=== PATIENT | male | born 1945 | race American Indian/Alaskan Native ===

== ENCOUNTER 2016-11-22 17:30 | Inpatient (IN) | payer MEDICARE, OTHER ==
[~2016-11-22] VITALS: Ht 188 cm; Wt 120.9 kg
[~2016-11-22 17:30] MED LIST: ACID1TAB3 PO; ATEN50TA41 PO; CETI10TA32 PO; CLIN300C93 PO; LOSA100T6 PO; OXYC1TAB7 PO; OXYC5TAB3 PO; Oxycodone Hcl PO; PANT40TA5 PO; WARF5TAB PO; WARF7.5T PO
[2016-11-22] MEDS ORDERED: PANTOPRAZOLE 80 MG in SODIUM CHLORIDE 0.9% 50 ML IVPB ONE ×2 (17:49→18:02)
[2016-11-22] MEDS ORDERED: PANTOPRAZOLE 80 MG in SODIUM CHLORIDE 0.9% 100 ML IV SCH (17:49)
[2016-11-22] MEDS ORDERED: SODIUM CHLORIDE 0.9% 1,000ML IVBOLUS ONE (18:00)
[2016-11-22] MEDS ORDERED: ONDANSETRON 2MG/ML, 2ML IVPush ONE (18:00)
[2016-11-22 18:26] LABS: BLOOD UREA NITROGEN 27 mg/dL (7-18)
[2016-11-22 18:29] LABS: ASPARTATE AMINO TRANSFERASE 91 U/L (15-37)
[2016-11-22] MEDS ORDERED: OCTREOTIDE 500 MCG in SODIUM CHLORIDE 0.9% 249 ML IV PRN (18:37)
[2016-11-22] MEDS: PANTOPRAZOLE 80 MG in SODIUM CHLORIDE 0.9% 100 ML IV SCH (18:39)
[2016-11-22] MEDS ORDERED: OCTREOTIDE 100MCG/ML, 1ML (0.1MG/ML) IV ONE (19:00)
[2016-11-22] MEDS ORDERED: ATEN100T PO (19:07)
[2016-11-22] MEDS ORDERED: LOSA1TAB18 PO (19:07)
[2016-11-22] MEDS ORDERED: PANT20TA3 PO (19:07)
[2016-11-22] MEDS ORDERED: ONDANSETRON 2MG/ML, 2ML ONE (19:30)
[2016-11-22] MEDS ORDERED: OCTREOTIDE 100MCG/ML, 1ML (0.1MG/ML) ONE (19:30)
[2016-11-22] MEDS ORDERED: MVI ADULT 10 ML, FOLIC ACID 1 MG, THIAMINE 100 MG, MAG SULFATE 4 MEQ, POTASSIUM CHLORID... IV ONE (20:30)
[2016-11-22 22:26] VITALS: BP 112/71
[2016-11-22 23:51] VITALS: BP 112/71
[2016-11-23 02:15] VITALS: BP 105/68
[2016-11-23] MEDS: PANTOPRAZOLE 80 MG in SODIUM CHLORIDE 0.9% 100 ML IV SCH ×3 (04:02→17:29)
[2016-11-23] MEDS ORDERED: MAGNESIUM SULFATE PMX 4GM/100M 100 ML IV ONE (06:30)
[2016-11-23] MEDS ORDERED: PHYTONADIONE 10 MG/ML, 1ML SQ ONE (06:30)
[2016-11-23 08:00] VITALS: BP 109/68
[2016-11-23] MEDS: ATENOLOL 100 MG TABLET PO SCH (09:00)
[2016-11-23 13:40] VITALS: BP 115/69
[2016-11-23] MEDS ORDERED: PROPOFOL 10 MG/ML, 20ML ONE (14:48)
[2016-11-23] MEDS ORDERED: MEPERIDINE/PF 25MG/0.5ML IVPush PRN (15:30)
[2016-11-23] MEDS ORDERED: ALBUTEROL/IPRATROPIUM 2.5MG/0.5MG, 3 ML NPPB PRN (15:30)
[2016-11-23] MEDS ORDERED: FENTANYL PF 100 MCG/2ML IV PRN (15:30)
[2016-11-23] MEDS ORDERED: MIDAZOLAM 1 MG/ML, 2ML IV PRN (15:30)
[2016-11-23] MEDS ORDERED: OXYcodone 5 MG/5 ML ORAL.SOL UDC PO PRN (15:30)
[2016-11-23] MEDS ORDERED: LABETALOL 5MG/ML, 20ML IV PRN (15:30)
[2016-11-23] MEDS ORDERED: ACETAMINOPHEN 325 MG TABLET PO PRN (15:30)
[2016-11-23] MEDS ORDERED: PROMETHAZINE 25 MG/ML, 1ML IV PRN (15:30)
[2016-11-23] MEDS ORDERED: HYDROmorphone 1 MG/ML, 1ML IV PRN (15:30)
[2016-11-23] MEDS ORDERED: ONDANSETRON 2MG/ML, 2ML IVPush PRN (15:30)
[2016-11-23] MEDS ORDERED: EPINEPHRINE SYRINGE 0.1 MG/ML, 10ML ONE (15:32)
[2016-11-23 19:12] VITALS: BP 127/75
[2016-11-24 02:25] VITALS: BP 114/72
[2016-11-24] MEDS: PANTOPRAZOLE 80 MG in SODIUM CHLORIDE 0.9% 100 ML IV SCH ×2 (03:13→13:19)
[2016-11-24 07:55] VITALS: BP 112/74
[2016-11-24] MEDS: ATENOLOL 100 MG TABLET PO SCH (10:30)
[2016-11-24 12:34] VITALS: BP 115/69
[2016-11-24 12:46] LABS: BLOOD UREA NITROGEN 19 mg/dL (7-18)
[2016-11-24] MEDS ORDERED: MAGNESIUM SULFATE PMX 4GM/100M 100 ML IV ONE (14:00)
[2016-11-24] MEDS ORDERED: PANTOPROZOLE 40MG TABLET PO SCH (14:00)
[2016-11-24] MEDS: OMEPRAZOLE 20 MG CAPSULE.DR PO SCH ×2 (15:00→17:00)
[2016-11-24] MEDS: NEUTRA PHOS K 250 MG TABLET PO SCH ×2 (17:00→20:43)
[2016-11-24 18:56] VITALS: BP 118/73
[2016-11-25 00:57] VITALS: BP 141/90
[2016-11-25 05:41] LABS: BLOOD UREA NITROGEN 13 mg/dL (7-18)
[2016-11-25 06:36] VITALS: BP 113/66
[2016-11-25] MEDS: NEUTRA PHOS K 250 MG TABLET PO SCH (08:35)
[2016-11-25] MEDS: ATENOLOL 100 MG TABLET PO SCH (08:35)
[2016-11-25] MEDS: OMEPRAZOLE 20 MG CAPSULE.DR PO SCH ×2 (08:35→17:51)
[2016-11-25] MEDS: FERROUS SULFATE 325 MG TABLET PO SCH ×2 (11:58→17:51)
[2016-11-25 13:10] VITALS: BP 115/73
[2016-11-25 19:49] VITALS: BP 116/68
[2016-11-26 04:25] VITALS: BP 107/67
[2016-11-26 06:05] LABS: BLOOD UREA NITROGEN 8 mg/dL (7-18)
[2016-11-26 07:26] VITALS: BP 120/74
[2016-11-26] MEDS ORDERED: FERR325T20 PO (11:26)
[2016-11-26] MEDS ORDERED: OMEP-110 PO (11:26)
[2016-11-26] MEDS: FERROUS SULFATE 325 MG TABLET PO SCH (11:35)
[2016-11-26] MEDS: ATENOLOL 100 MG TABLET PO SCH (11:35)
[2016-11-26] MEDS: OMEPRAZOLE 20 MG CAPSULE.DR PO SCH (11:35)
== END 2016-11-26 14:24 | disposition home or self-care (01) | DRG 377 ==
LOC: ED 18:21 → EDIP 19:43 → 3NE 22:24
PROVIDERS: ADMIT Hospitalist; ATTEND Internal Medicine
PROC: 0DB58ZZ Excision of Esophagus, Via Natural or Artificial Opening Endoscopic (ICD-10-PCS; 2016-11-23)
PROC: 0DB78ZZ Excision of Stomach, Pylorus, Via Natural or Artificial Opening Endoscopic (ICD-10-PCS; 2016-11-23)
PROC: 3E0G8GC Introduction of Other Therapeutic Substance into Upper GI, Via Natural or Artificial Opening Endoscopic (ICD-10-PCS; 2016-11-23)
PROC: 0W3P8ZZ Control Bleeding in Gastrointestinal Tract, Via Natural or Artificial Opening Endoscopic (ICD-10-PCS; principal; 2016-11-23 15:00)
DX: K25.4 Chronic or unspecified gastric ulcer with hemorrhage (principal); E43 Unspecified severe protein-calorie malnutrition; D68.9 Coagulation defect, unspecified; D62 Acute posthemorrhagic anemia; N17.9 Acute kidney failure, unspecified; E83.39 Other disorders of phosphorus metabolism; E83.42 Hypomagnesemia; F10.20 Alcohol dependence, uncomplicated; K22.70 Barrett's esophagus without dysplasia; I10 Essential (primary) hypertension; K21.9 Gastro-esophageal reflux disease without esophagitis; K29.50 Unspecified chronic gastritis without bleeding; K76.9 Liver disease, unspecified; Z86.718 Personal history of other venous thrombosis and embolism; Z87.11 Personal history of peptic ulcer disease; Z68.34 Body mass index [BMI] 34.0-34.9, adult
CPT/HCPCS: 36415; 80048; 80053; 82040; 83690; 83735; 84100; 85025; 85610; 86850; 86870; 86900; 86902; 86922; 86923; 88305; 88342; 93005; 96361; 96365; 96366; 96367; 96375; J2354; J2405; J2704; J3411; J3430; J3475; J3480; C9113; G0461; J7030; J7050

== ENCOUNTER 2018-04-10 11:01 | Inpatient (IN) | payer MEDICARE, OTHER ==
[~2018-04-10] VITALS: Ht 188 cm; Wt 126.2 kg
[~2018-04-10 11:01] MED LIST changes: +ASPI-496 PO; +ATEN100T PO; +CLIN300C8 PO; -CLIN300C93 PO; +FERR325T18 PO; +HYDROCHLOROTH12.5 MG PO; -LOSA100T6 PO; +LOSA100T7 PO; +LOSA1TAB25 PO; +OMEP-110 PO; +OXYB5TAB7 PO; +OXYC10TA6 PO; +PANT20TA3 PO
[2018-04-10 12:39] LABS: BASOPHILS # (AUTO) 0.02 x10^3/uL (0-0.1); BASOPHILS % (AUTO) 0 % (0-1); EOSINOPHILS # (AUTO) 0.02 x10^3/uL (0-0.4); EOSINOPHILS % (AUTO) 0 % (1-7); LYMPHOCYTES # (AUTO) 0.61 x10^3/uL (1-3.4); LYMPHOCYTES % (AUTO) 8 % (22-44); MD NO; MEAN CORPUSCULAR HEMOGLOBIN 32.5 pg (27.5-34.5); MEAN CORPUSCULAR VOLUME 95.4 fL (81-97); MONOCYTES # (AUTO) 0.44 x10^3/uL (0.2-0.8); MONOCYTES % (AUTO) 6 % (2-9); NEUTROPHILS # (AUTO) 6.15 x10^3/uL (1.8-6.8); NEUTROPHILS % (AUTO) 85 % (42-75); PLATELET COUNT 160 x10^3/uL (130-400); RED BLOOD COUNT 2.81 x10^6/uL (4.38-5.82); RED CELL DISTRIBUTION WIDTH 18.7 % (9.4-14.8)
[2018-04-10 12:44] LABS: INTERNATIONAL NORMALIZED RATIO 1.09 (0.93-1.1); PROTHROMBIN TIME 11.5 Seconds (9.6-11.5)
[2018-04-10 12:46] LABS: ALBUMIN 3.1 g/dL (3.4-5.0); ANION GAP 13 mmol/L (5-15); CALCIUM 9.2 mg/dL (8.5-10.1); CHLORIDE 104 mmol/L (98-107); CREATININE 1.94 mg/dL (0.7-1.3)
[2018-04-10] MEDS ORDERED: SPIR25TA5 PO (13:40)
[2018-04-10] MEDS ORDERED: CHOL200074 PO (13:40)
[2018-04-10] MEDS ORDERED: LOSA100T7 PO (13:40)
[2018-04-10] MEDS ORDERED: OMNIPAQUE 350 MG/ML, 100ML BOTTLE ONE (15:08)
[2018-04-10] MEDS ORDERED: HEPARIN 25,000 UNITS/500ML PMX 500 ML IV PRN (15:30)
[2018-04-10] MEDS ORDERED: HEPARIN 5,000 UNITS/ML, 1ML IV ONE (15:30)
[2018-04-10] MEDS ORDERED: HEPARIN 5,000 UNITS/ML, 1ML IV PRN (15:30)
[2018-04-10] MEDS ORDERED: HEPARIN 25,000 UNITS/500ML PMX 500 ML ONE (15:50)
[2018-04-10] MEDS ORDERED: HEPARIN 5,000 UNITS/ML, 1ML ONE (15:50)
[2018-04-10] MEDS ORDERED: FLUCONAZOLE TD (16:10)
[2018-04-10] MEDS ORDERED: OXYC10TA6 PO (16:10)
[2018-04-10] MEDS ORDERED: SODIUM CHLORIDE 0.9% 1,000 ML IV SCH (16:27)
[2018-04-10] MEDS ORDERED: ACETAMINOPHEN 325 MG TABLET PO PRN (16:30)
[2018-04-10] MEDS ORDERED: ONDANSETRON 2MG/ML, 2ML IVPush PRN (16:30)
[2018-04-10] MEDS ORDERED: DOCUSATE 100 MG CAPSULE PO PRN (16:30)
[2018-04-10] MEDS ORDERED: POLYETHYLENE GLYCOL 17 GM PACKET PO PRN (16:30)
[2018-04-10] MEDS ORDERED: OXYcodone IR 5MG TABLET ONE (16:37)
[2018-04-10] MEDS: OXYcodone IR 5MG TABLET PO PRN ×2 (16:41→21:51)
[2018-04-10 17:30] VITALS: BP 124/70
[2018-04-10] MEDS ORDERED: WARFARIN 5 MG TABLET PO-COUM ONE (18:00)
[2018-04-10 18:57] VITALS: BP 114/69
[2018-04-10] MEDS: HEPARIN 5,000 UNITS/ML, 1ML IV PRN (23:58)
[2018-04-11 01:22] VITALS: BP 107/68
[2018-04-11] MEDS: OXYcodone IR 5MG TABLET PO PRN ×2 (05:53→11:52)
[2018-04-11] MEDS: OMEPRAZOLE 20 MG CAPSULE.DR PO SCH (05:53)
[2018-04-11 06:14] LABS: BASOPHILS # (AUTO) 0.02 x10^3/uL (0-0.1); BASOPHILS % (AUTO) 0 % (0-1); EOSINOPHILS # (AUTO) 0.08 x10^3/uL (0-0.4); EOSINOPHILS % (AUTO) 1 % (1-7); LYMPHOCYTES # (AUTO) 1.45 x10^3/uL (1-3.4); LYMPHOCYTES % (AUTO) 20 % (22-44); MD NO; MEAN CORPUSCULAR HGB CONC 33.7 g/dL (33.2-36.2); MEAN CORPUSCULAR VOLUME 94.7 fL (81-97); MEAN PLATELET VOLUME 8.8 fL (7.4-10.4); MONOCYTES # (AUTO) 0.46 x10^3/uL (0.2-0.8); MONOCYTES % (AUTO) 6 % (2-9); NEUTROPHILS # (AUTO) 5.43 x10^3/uL (1.8-6.8); NEUTROPHILS % (AUTO) 73 % (42-75); PLATELET COUNT 138 x10^3/uL (130-400); RED BLOOD COUNT 2.67 x10^6/uL (4.38-5.82); RED CELL DISTRIBUTION WIDTH 18.3 % (9.4-14.8)
[2018-04-11 06:23] LABS: INTERNATIONAL NORMALIZED RATIO 1.13 (0.93-1.1); PROTHROMBIN TIME 11.9 Seconds (9.6-11.5)
[2018-04-11 06:24] LABS: ANION GAP 10 mmol/L (5-15); CALCIUM 8.6 mg/dL (8.5-10.1); CHLORIDE 104 mmol/L (98-107); CREATININE 1.59 mg/dL (0.7-1.3)
[2018-04-11 06:35] VITALS: BP 104/65
[2018-04-11] MEDS: SPIRONOLACTONE 25 MG TABLET PO SCH (08:39)
[2018-04-11] MEDS: LOSARTAN 50MG TABLET PO SCH (08:39)
[2018-04-11] MEDS: CETIRIZINE 10 MG TABLET PO SCH (08:39)
[2018-04-11] MEDS: SENNA/DOCUSATE TABLET PO SCH (08:39)
[2018-04-11 12:23] VITALS: BP 96/61
[2018-04-11] MEDS: HEPARIN 25,000 UNITS/500ML PMX 500 ML IV PRN (12:43)
[2018-04-11] MEDS ORDERED: MAGNESIUM SULFATE PMX 2GM/50ML 50 ML IV ONE (15:00)
[2018-04-11] MEDS: FUROSEMIDE 20 MG/2 ML IV SCH (17:06)
[2018-04-11] MEDS ORDERED: WARFARIN 5 MG TABLET PO-COUM ONE (18:00)
[2018-04-11 19:18] VITALS: BP 110/68
[2018-04-12 02:54] VITALS: BP 97/60
[2018-04-12 05:35] LABS: BASOPHILS # (AUTO) 0.02 x10^3/uL (0-0.1); BASOPHILS % (AUTO) 0 % (0-1); EOSINOPHILS # (AUTO) 0.09 x10^3/uL (0-0.4); EOSINOPHILS % (AUTO) 1 % (1-7); LYMPHOCYTES % (AUTO) 18 % (22-44); MD NO; MEAN CORPUSCULAR HEMOGLOBIN 32.3 pg (27.5-34.5); MEAN CORPUSCULAR HGB CONC 33.8 g/dL (33.2-36.2); MEAN CORPUSCULAR VOLUME 95.6 fL (81-97); MEAN PLATELET VOLUME 8.9 fL (7.4-10.4); MONOCYTES # (AUTO) 0.45 x10^3/uL (0.2-0.8); MONOCYTES % (AUTO) 6 % (2-9); NEUTROPHILS % (AUTO) 74 % (42-75); PLATELET COUNT 144 x10^3/uL (130-400); RED BLOOD COUNT 2.61 x10^6/uL (4.38-5.82); RED CELL DISTRIBUTION WIDTH 18.4 % (9.4-14.8)
[2018-04-12 05:37] LABS: INTERNATIONAL NORMALIZED RATIO 1.07 (0.93-1.1); PROTHROMBIN TIME 11.3 Seconds (9.6-11.5)
[2018-04-12 05:45] LABS: CHLORIDE 103 mmol/L (98-107)
[2018-04-12 05:50] LABS: ANION GAP 13 mmol/L (5-15); CALCIUM 8.9 mg/dL (8.5-10.1); CREATININE 1.52 mg/dL (0.7-1.3)
[2018-04-12] MEDS: HEPARIN 5,000 UNITS/ML, 1ML IV PRN (05:53)
[2018-04-12] MEDS: HEPARIN 25,000 UNITS/500ML PMX 500 ML IV PRN ×2 (05:55→21:43)
[2018-04-12] MEDS: OMEPRAZOLE 20 MG CAPSULE.DR PO SCH (05:56)
[2018-04-12 06:49] VITALS: BP 104/64
[2018-04-12] MEDS: SENNA/DOCUSATE TABLET PO SCH (08:01)
[2018-04-12] MEDS: LOSARTAN 50MG TABLET PO SCH (08:02)
[2018-04-12] MEDS: FUROSEMIDE 20 MG/2 ML IV SCH ×2 (08:02→17:19)
[2018-04-12] MEDS: SPIRONOLACTONE 25 MG TABLET PO SCH (08:02)
[2018-04-12] MEDS: CETIRIZINE 10 MG TABLET PO SCH (08:02)
[2018-04-12] MEDS: OXYcodone IR 5MG TABLET PO PRN ×2 (08:05→23:15)
[2018-04-12 13:54] VITALS: BP 95/60
[2018-04-12] MEDS ORDERED: WARFARIN 5 MG TABLET PO-COUM ONE (18:00)
[2018-04-12 19:17] VITALS: BP 93/55
[2018-04-13 01:05] VITALS: BP 96/60
[2018-04-13 05:10] LABS: BASOPHILS # (AUTO) 0.03 x10^3/uL (0-0.1); BASOPHILS % (AUTO) 0 % (0-1); EOSINOPHILS # (AUTO) 0.11 x10^3/uL (0-0.4); EOSINOPHILS % (AUTO) 2 % (1-7); LYMPHOCYTES # (AUTO) 1.75 x10^3/uL (1-3.4); LYMPHOCYTES % (AUTO) 24 % (22-44); MD NO; MEAN CORPUSCULAR HEMOGLOBIN 32.4 pg (27.5-34.5); MEAN CORPUSCULAR VOLUME 95.3 fL (81-97); MEAN PLATELET VOLUME 8.4 fL (7.4-10.4); MONOCYTES # (AUTO) 0.59 x10^3/uL (0.2-0.8); MONOCYTES % (AUTO) 8 % (2-9); NEUTROPHILS # (AUTO) 4.73 x10^3/uL (1.8-6.8); NEUTROPHILS % (AUTO) 66 % (42-75); PLATELET COUNT 158 x10^3/uL (130-400); RED BLOOD COUNT 2.52 x10^6/uL (4.38-5.82); RED CELL DISTRIBUTION WIDTH 19.4 % (9.4-14.8)
[2018-04-13 05:20] LABS: INTERNATIONAL NORMALIZED RATIO 1.1 (0.93-1.1); PROTHROMBIN TIME 11.6 Seconds (9.6-11.5)
[2018-04-13 05:22] LABS: CHLORIDE 102 mmol/L (98-107)
[2018-04-13 05:31] LABS: ANION GAP 9 mmol/L (5-15); CALCIUM 8.4 mg/dL (8.5-10.1); CREATININE 1.67 mg/dL (0.7-1.3)
[2018-04-13 07:19] VITALS: BP 95/58
[2018-04-13] MEDS: OMEPRAZOLE 20 MG CAPSULE.DR PO SCH (07:31)
[2018-04-13] MEDS: FUROSEMIDE 20 MG/2 ML IV SCH (07:31)
[2018-04-13 08:25] VITALS: BP 122/71
[2018-04-13] MEDS: CETIRIZINE 10 MG TABLET PO SCH (08:25)
[2018-04-13] MEDS: SPIRONOLACTONE 25 MG TABLET PO SCH (08:25)
[2018-04-13] MEDS: SENNA/DOCUSATE TABLET PO SCH (08:25)
[2018-04-13] MEDS: LOSARTAN 50MG TABLET PO SCH (08:25)
[2018-04-13 14:11] VITALS: BP 93/57
[2018-04-13] MEDS: HEPARIN 25,000 UNITS/500ML PMX 500 ML IV PRN (14:38)
[2018-04-13] MEDS: OXYcodone IR 5MG TABLET PO PRN (17:19)
[2018-04-13] MEDS ORDERED: WARFARIN 10 MG TABLET PO-COUM ONE (18:00)
[2018-04-13 19:40] VITALS: BP 92/48
[2018-04-14 01:15] VITALS: BP 91/57
[2018-04-14 01:53] VITALS: BP 96/58
[2018-04-14 05:40] LABS: BASOPHILS # (AUTO) 0.02 x10^3/uL (0-0.1); BASOPHILS % (AUTO) 0 % (0-1); EOSINOPHILS # (AUTO) 0.09 x10^3/uL (0-0.4); EOSINOPHILS % (AUTO) 1 % (1-7); LYMPHOCYTES # (AUTO) 1.47 x10^3/uL (1-3.4); LYMPHOCYTES % (AUTO) 21 % (22-44); MD NO; MEAN CORPUSCULAR HEMOGLOBIN 32.5 pg (27.5-34.5); MEAN CORPUSCULAR HGB CONC 33.9 g/dL (33.2-36.2); MEAN CORPUSCULAR VOLUME 95.9 fL (81-97); MEAN PLATELET VOLUME 8.7 fL (7.4-10.4); MONOCYTES # (AUTO) 0.62 x10^3/uL (0.2-0.8); MONOCYTES % (AUTO) 9 % (2-9); NEUTROPHILS # (AUTO) 4.71 x10^3/uL (1.8-6.8); NEUTROPHILS % (AUTO) 68 % (42-75); PLATELET COUNT 182 x10^3/uL (130-400); RED BLOOD COUNT 2.55 x10^6/uL (4.38-5.82); RED CELL DISTRIBUTION WIDTH 19.1 % (9.4-14.8)
[2018-04-14 05:50] LABS: ALBUMIN 2.4 g/dL (3.4-5.0); ANION GAP 13 mmol/L (5-15); CALCIUM 8.4 mg/dL (8.5-10.1); CHLORIDE 101 mmol/L (98-107); CREATININE 1.88 mg/dL (0.7-1.3); INTERNATIONAL NORMALIZED RATIO 1.2 (0.93-1.1); PROTHROMBIN TIME 12.6 Seconds (9.6-11.5)
[2018-04-14] MEDS: OMEPRAZOLE 20 MG CAPSULE.DR PO SCH (06:37)
[2018-04-14] MEDS: HEPARIN 25,000 UNITS/500ML PMX 500 ML IV PRN ×2 (06:39→23:26)
[2018-04-14 06:46] VITALS: BP 94/57
[2018-04-14] MEDS: CETIRIZINE 10 MG TABLET PO SCH (07:58)
[2018-04-14] MEDS: SENNA/DOCUSATE TABLET PO SCH ×2 (07:59→08:12)
[2018-04-14] MEDS ORDERED: SPIRONOLACTONE 25 MG TABLET PO SCH (09:00)
[2018-04-14] MEDS: OXYcodone IR 5MG TABLET PO PRN ×2 (10:18→15:33)
[2018-04-14 12:18] VITALS: BP 91/59
[2018-04-14] MEDS ORDERED: WARFARIN 10 MG TABLET PO-COUM SCH (18:00)
[2018-04-14 19:05] VITALS: BP 90/48
[2018-04-15 01:07] VITALS: BP 90/56
[2018-04-15] MEDS: OMEPRAZOLE 20 MG CAPSULE.DR PO SCH (05:54)
[2018-04-15 06:00] LABS: INTERNATIONAL NORMALIZED RATIO 1.47 (0.93-1.1); PROTHROMBIN TIME 15.4 Seconds (9.6-11.5)
[2018-04-15 06:56] VITALS: BP 95/60
[2018-04-15] MEDS ORDERED: ENOXAPARIN 120MG/0.8ML SQ SCH (08:30)
[2018-04-15] MEDS: CETIRIZINE 10 MG TABLET PO SCH (09:15)
[2018-04-15] MEDS: SENNA/DOCUSATE TABLET PO SCH (09:15)
[2018-04-15 12:49] VITALS: BP 100/63
[2018-04-15] MEDS ORDERED: POLY17PO5 PO (14:05)
[2018-04-15] MEDS ORDERED: ENOX120S4 SQ (14:05)
[2018-04-15] MEDS ORDERED: WARF10TA PO-COUM (14:05)
[2018-04-15] MEDS ORDERED: WARFARIN 10 MG TABLET PO-COUM SCH ×2 (18:00)
== END 2018-04-15 17:21 | DRG 175 ==
LOC: ED 12:19 → EDIP 15:31 → SUATTDRO 15:44 → 3NE 16:45
PROVIDERS: ADMIT Family Medicine; ATTEND Internal Medicine
DX: I26.99 Other pulmonary embolism without acute cor pulmonale (principal); E43 Unspecified severe protein-calorie malnutrition; D68.69 Other thrombophilia; K92.2 Gastrointestinal hemorrhage, unspecified; D62 Acute posthemorrhagic anemia; N17.9 Acute kidney failure, unspecified; I82.412 Acute embolism and thrombosis of left femoral vein; I82.4Z2 Acute embolism and thrombosis of unspecified deep veins of left distal lower extremity; I87.002 Postthrombotic syndrome without complications of left lower extremity; E66.01 Morbid (severe) obesity due to excess calories; G89.29 Other chronic pain; I10 Essential (primary) hypertension; K21.9 Gastro-esophageal reflux disease without esophagitis; Z66 Do not resuscitate; M54.9 Dorsalgia, unspecified; Z79.01 Long term (current) use of anticoagulants; Z86.718 Personal history of other venous thrombosis and embolism; Z82.49 Family history of ischemic heart disease and other diseases of the circulatory system; Z79.899 Other long term (current) drug therapy; Z68.35 Body mass index [BMI] 35.0-35.9, adult
CPT/HCPCS: 36415; 71275; 80048; 82040; 83735; 85025; 85520; 85610; 93306; 93922; 96374; 96375; G0378; J1644; J1650; J2405; Q9967; J1940; J3475; J7030

== ENCOUNTER 2018-05-16 15:06 | Emergency (ER) | payer MEDICARE ==
[~2018-05-16] VITALS: Ht 188 cm; Wt 113.6 kg
[~2018-05-16 15:06] MED LIST changes: +CHOL200074 PO; +ENOX120S4 SQ; +FLUCONAZOLE TD; +POLY17PO5 PO; +SPIR25TA5 PO; +WARF10TA PO-COUM
--- NOTE | 2018-05-16 15:15 | NUR ---
PT BROUGHT IN BY EMS WITH C/O LEFT KNEE PAIN. PT HAS HISTORY OF BLOOD CLOTS AND STATES, "AROUND [place] AFTER I WAS DISCHARGED FROM [place] AFTER BEING HOSPITALIZED HERE FOR A BLOOD CLOT, MY LEFT LEG STARTED SWELLING AND GETTING WORSE." NADN. PT CONNECTED TO ALL MONITORS. PT IS TACHYCARDIC BETWEEN 110-120'S. PT HAS UNLABORED RESPIRATIONS EQUAL BILATERALLY AND IS AFEBRILE. PT HAS SWELLING AND REDNESS OF LOWER EXTREMITIES. ED PA AT BEDSIDE.
[2018-05-16] MEDS ORDERED: OXYcodone/APAP 5/325MG TABLET ONE (15:27)
[2018-05-16] MEDS ORDERED: OXYcodone/APAP 5/325MG TABLET PO ONE (15:30)
--- NOTE | 2018-05-16 15:36 | NUR ---
PT MEDICATED PER EMAR.
[2018-05-16 15:43] LABS: BASOPHILS # (AUTO) 0.03 x10^3/uL (0-0.1); BASOPHILS % (AUTO) 1 % (0-1); EOSINOPHILS # (AUTO) 0.02 x10^3/uL (0-0.4); EOSINOPHILS % (AUTO) 1 % (1-7); LYMPHOCYTES # (AUTO) 0.97 x10^3/uL (1-3.4); LYMPHOCYTES % (AUTO) 22 % (22-44); MD NO; MEAN CORPUSCULAR HEMOGLOBIN 29.5 pg (27.5-34.5); MEAN CORPUSCULAR HGB CONC 33.4 g/dL (33.2-36.2); MEAN CORPUSCULAR VOLUME 88.1 fL (81-97); MEAN PLATELET VOLUME 8.2 fL (7.4-10.4); MONOCYTES # (AUTO) 0.49 x10^3/uL (0.2-0.8); MONOCYTES % (AUTO) 11 % (2-9); NEUTROPHILS # (AUTO) 2.82 x10^3/uL (1.8-6.8); NEUTROPHILS % (AUTO) 65 % (42-75); PLATELET COUNT 230 x10^3/uL (130-400); RED BLOOD COUNT 3.45 x10^6/uL (4.38-5.82); RED CELL DISTRIBUTION WIDTH 19.2 % (9.4-14.8)
[2018-05-16 15:54] LABS: ALBUMIN 3.2 g/dL (3.4-5.0); ANION GAP 12 mmol/L (5-15); CALCIUM 9.1 mg/dL (8.5-10.1); CHLORIDE 101 mmol/L (98-107); CREATININE 1.46 mg/dL (0.7-1.3)
[2018-05-16 15:57] VITALS: BP 145/87
--- NOTE | 2018-05-16 15:57 | NUR ---
PT RESTING IN BED NADN. US BEING COMPLETED.
[2018-05-16 16:24] LABS: INTERNATIONAL NORMALIZED RATIO 13.53 (0.93-1.1); PROTHROMBIN TIME 129.7 Seconds (9.6-11.5)
[2018-05-16] MEDS ORDERED: PHYTONADIONE 10 MG/ML, 1ML SQ ONE (16:30)
[2018-05-16] MEDS ORDERED: PHYTONADIONE 10 MG/ML, 1ML ONE (16:44)
--- NOTE | 2018-05-16 17:05 | NUR ---
VITAMIN K SHOT GIVEN TO PT IN LOWER RIGHT QUADRANT.
--- NOTE | 2018-05-16 17:20 | NUR ---
Patient/Caregiver given discharge instructions and they have confirmed that they understand the instructions. Patient ambulatory with steady gait.
== END 2018-05-16 17:22 | disposition home or self-care (01) ==
LOC: ED 17:00
DX: I82.512 Chronic embolism and thrombosis of left femoral vein (principal); G89.29 Other chronic pain; I10 Essential (primary) hypertension
CPT/HCPCS: 36415; 80048; 82040; 85025; 85610; 93971; 96372; 99284; J3430

== ENCOUNTER 2020-03-02 16:38 | Inpatient (IN) | payer MEDICARE ==
[~2020-03-02] VITALS: Ht 188 cm; Wt 103.9 kg
[~2020-03-02 16:38] MED LIST changes: +LOSA100T14 PO; -LOSA100T7 PO; +OXYB5TAB10 PO; -OXYB5TAB7 PO; -PANT20TA3 PO; +PANT20TA4 PO; -PANT40TA5 PO; +PANT40TA6 PO; -WARF5TAB PO; +WARF5TAB2 PO
--- NOTE | 2020-03-02 17:32 | NUR ---
PT ARRIVES SOAKED IN URINE, PT WEAK UNABLE TO HELP THIS RN TO CLEAN UP PT AND GET IN GOWN, TECH IN TO ASSIST TO CLEAN PT .
--- NOTE | 2020-03-02 17:59 | NUR ---
BIB [facility], PER SHIRA REPORT PT WITH WITH DECREASED MENTATION OVER THE PAST WEEK. PER REPORT PT HAD A FALL, UNKNOWN [place]ATH[place]. UNKNOWN LOC 1 WEEK AGO. PT WITH HX ETOH ABUSE, PER SHIRA PT SITS IN CHAIR AT HOME AND DRINKS ALL DAY LONG. PT ORIENTED X3 ON ARRIVAL. ERMD IN TO EVAL PT, AWAITING ORDERS
[2020-03-02] MEDS ORDERED: CEFTRIAXONE 1,000 MG in SODIUM CHLORIDE 0.9% 50 ML IVPB ONE (18:00)
--- NOTE | 2020-03-02 18:09 | NUR ---
PT TO US
[2020-03-02 18:56] LABS: BASOPHILS % (AUTO) 0 % (0-1); EOSINOPHILS % (AUTO) 0 % (1-7); LYMPHOCYTES % (AUTO) 9 % (22-44); MEAN CORPUSCULAR HEMOGLOBIN 35.2 pg (27.5-34.5); MEAN CORPUSCULAR HGB CONC 34.7 g/dL (33.2-36.2); MEAN PLATELET VOLUME 9.8 fL (7.4-10.4); MONOCYTES % (AUTO) 12 % (2-9); NEUTROPHILS % (AUTO) 79 % (42-75); PLATELET COUNT 152 x10^3/uL (130-400); RED CELL DISTRIBUTION WIDTH 14.5 % (9.4-14.8)
[2020-03-02 18:59] LABS: MD NO
--- NOTE | 2020-03-02 19:00 | NUR ---
late entry d/t pt care: bedside report from Enma VILLALTA. pt resting on gurney, lights dimmed for comfort, nad, appears comfortable and denies additional needs at this time. waiting for test results. wctm
[2020-03-02 19:01] LABS: ALANINE AMINOTRANSFERASE 55 U/L (12-78); ALBUMIN 2.4 g/dL (3.4-5.0); ANION GAP 8 mmol/L (5-15); CALCIUM 10.7 mg/dL (8.5-10.1); CHLORIDE 93 mmol/L (98-107); CREATININE 1.38 mg/dL (0.7-1.3); INTERNATIONAL NORMALIZED RATIO 1.1 (0.93-1.1); PROTHROMBIN TIME 11.7 Seconds (9.6-11.5)
[2020-03-02 19:04] LABS: ALKALINE PHOSPHATASE 156 U/L (45-117); BILIRUBIN,TOTAL 2.2 mg/dL (0.2-1.0)
[2020-03-02] MEDS ORDERED: WARF-36 PO (19:15)
[2020-03-02] MEDS ORDERED: CEFTRIAXONE PMX 1GM/50ML 50 ML ONE (19:16)
--- NOTE | 2020-03-02 19:51 | NUR ---
pt hussein placed for skin and wound healing, pt tolerated well, medicated per mar, nad, bed in lowest with call light on lap. wctm. waiting for ua results.
[2020-03-02 19:56] LABS: MICROSCOPIC INDICATED
[2020-03-02] MEDS ORDERED: POLYETHYLENE GLYCOL 17 GM PACKET PO PRN (21:30)
[2020-03-02] MEDS ORDERED: BISACODYL 10 MG SUPP PR PRN (21:30)
[2020-03-02] MEDS: AMPICILLIN/SULBACTAM 3 GM in SODIUM CHLORIDE 0.9% 100 ML IV SCH (21:30)
[2020-03-02] MEDS ORDERED: HEPARIN 5,000 UNITS/ML, 1ML SQ SCH (21:30)
[2020-03-02] MEDS ORDERED: SODIUM CHLORIDE 0.9% 1,000 ML IV SCH (21:30)
[2020-03-02] MEDS ORDERED: ONDANSETRON ODT 4 MG PO PRN (21:30)
--- NOTE | 2020-03-02 21:46 | NUR ---
PT RESTING ON KEON, ANDRE, NO CHANGE IN CONDITION, TO BE ADMITTED, WCTM. WAITING FOR ADMIT BED.
[2020-03-02] MEDS ORDERED: THIAMINE 100MG TABLET ONE (22:23)
[2020-03-02] MEDS ORDERED: HEPARIN 5,000 UNITS/ML, 1ML IV ONE (22:30)
[2020-03-02] MEDS ORDERED: WARFARIN 5 MG TABLET PO-COUM ONE (22:30)
[2020-03-02] MEDS: THIAMINE 100MG TABLET PO SCH (22:39)
--- NOTE | 2020-03-02 22:49 | NUR ---
PT MEDICATED PER JUL, NAD, DENIES ADDITIONAL NEEDS AT THIS TIME, NO OTHER CHANGES, MARYBEL VILLALTA CALLED FOR REPORT, PT CARE TO BE TRANSFERRED UPON ARRIVAL TO THE FLOOR. MAVIS.
[2020-03-02 23:38] VITALS: BP 127/71
[2020-03-03] MEDS: HEPARIN 25,000 UNITS/250ML PMX 250 ML IV PRN ×2 (00:28→19:58)
[2020-03-03 02:08] VITALS: BP 127/71
[2020-03-03] MEDS: AMPICILLIN/SULBACTAM 3 GM in SODIUM CHLORIDE 0.9% 100 ML IV SCH ×4 (04:23→21:47)
[2020-03-03 05:03] LABS: BASOPHILS % (AUTO) 0 % (0-1); EOSINOPHILS % (AUTO) 0 % (1-7); LYMPHOCYTES % (AUTO) 14 % (22-44); MEAN CORPUSCULAR HEMOGLOBIN 35.5 pg (27.5-34.5); MEAN CORPUSCULAR HGB CONC 34.6 g/dL (33.2-36.2); MEAN PLATELET VOLUME 9.9 fL (7.4-10.4); MONOCYTES % (AUTO) 17 % (2-9); NEUTROPHILS % (AUTO) 69 % (42-75); PLATELET COUNT 128 x10^3/uL (130-400); RED BLOOD COUNT 3.82 x10^6/uL (4.38-5.82); RED CELL DISTRIBUTION WIDTH 14.5 % (9.4-14.8)
[2020-03-03 05:12] LABS: ANION GAP 7 mmol/L (5-15); CALCIUM 9.4 mg/dL (8.5-10.1); CHLORIDE 96 mmol/L (98-107)
[2020-03-03 05:13] LABS: MD NO
[2020-03-03 05:15] LABS: CREATININE 1.13 mg/dL (0.7-1.3)
[2020-03-03 05:17] LABS: INTERNATIONAL NORMALIZED RATIO 1.2 (0.93-1.1); PROTHROMBIN TIME 12.7 Seconds (9.6-11.5)
[2020-03-03] MEDS: OMEPRAZOLE 20 MG CAPSULE.DR PO SCH (06:12)
[2020-03-03 07:28] VITALS: BP 120/72
[2020-03-03] MEDS ORDERED: POTASSIUM CHLORIDE 40 MEQ in SODIUM CHLORIDE 0.9% 500 ML IV ONE (08:30)
[2020-03-03] MEDS: SENNA/DOCUSATE TABLET PO SCH (08:37)
[2020-03-03] MEDS: CHOLECALCIFEROL 1,000 UNIT TABLET PO SCH (08:46)
[2020-03-03] MEDS: THIAMINE 100MG TABLET PO SCH ×2 (08:46→21:46)
[2020-03-03] MEDS: MULTIVITAMINS/MINERALS TABLET PO SCH (08:46)
[2020-03-03] MEDS: CETIRIZINE 10 MG TABLET PO SCH (08:46)
[2020-03-03] MEDS: FOLIC ACID 1 MG TABLET PO SCH (08:46)
[2020-03-03] MEDS ORDERED: LIDODERM 5% PATCH TD ONE (09:54)
[2020-03-03] MEDS: LIDODERM 5% PATCH TD SCH (10:20)
[2020-03-03] MEDS ORDERED: FUROSEMIDE 40 MG/4 ML IV ONE (11:00)
[2020-03-03] MEDS: HEPARIN 5,000 UNITS/ML, 1ML IV PRN (11:18)
[2020-03-03 13:30] VITALS: BP 103/68
[2020-03-03] MEDS: WARFARIN 5 MG TABLET PO-COUM SCH (17:36)
[2020-03-03 18:15] VITALS: BP 99/67
[2020-03-04 00:15] VITALS: BP 96/61
[2020-03-04] MEDS: HEPARIN 5,000 UNITS/ML, 1ML IV PRN ×2 (00:23→14:30)
[2020-03-04] MEDS: AMPICILLIN/SULBACTAM 3 GM in SODIUM CHLORIDE 0.9% 100 ML IV SCH ×4 (03:56→21:22)
[2020-03-04 05:24] LABS: BASOPHILS % (AUTO) 1 % (0-1); EOSINOPHILS % (AUTO) 1 % (1-7); LYMPHOCYTES % (AUTO) 25 % (22-44); MEAN CORPUSCULAR HEMOGLOBIN 35.6 pg (27.5-34.5); MEAN CORPUSCULAR HGB CONC 34.1 g/dL (33.2-36.2); MEAN PLATELET VOLUME 9.7 fL (7.4-10.4); MONOCYTES % (AUTO) 14 % (2-9); NEUTROPHILS % (AUTO) 59 % (42-75); PLATELET COUNT 136 x10^3/uL (130-400); RED BLOOD COUNT 3.45 x10^6/uL (4.38-5.82); RED CELL DISTRIBUTION WIDTH 14.7 % (9.4-14.8)
[2020-03-04 05:31] LABS: INTERNATIONAL NORMALIZED RATIO 1.31 (0.93-1.1); PROTHROMBIN TIME 13.9 Seconds (9.6-11.5)
[2020-03-04 05:38] LABS: ALBUMIN 1.8 g/dL (3.4-5.0); ANION GAP 8 mmol/L (5-15); CALCIUM 8.9 mg/dL (8.5-10.1); CHLORIDE 99 mmol/L (98-107)
[2020-03-04] MEDS: OMEPRAZOLE 20 MG CAPSULE.DR PO SCH (05:38)
[2020-03-04 05:43] LABS: ALANINE AMINOTRANSFERASE 35 U/L (12-78); ALKALINE PHOSPHATASE 118 U/L (45-117); BILIRUBIN,TOTAL 1.3 mg/dL (0.2-1.0); CREATININE 1.29 mg/dL (0.7-1.3); TOTAL PROTEIN 7.2 g/dL (6.4-8.2)
[2020-03-04 06:15] LABS: MD SCAN
[2020-03-04 07:50] VITALS: BP 109/65
[2020-03-04] MEDS ORDERED: POTASSIUM CHLORIDE 20 MEQ TAB.ER.PRT PO ONE (09:00)
[2020-03-04] MEDS: LIDODERM 5% PATCH TD SCH (10:29)
[2020-03-04] MEDS ORDERED: VANCOMYCIN PMX 1GM/200ML 200 ML IV ONE (10:30)
[2020-03-04] MEDS: CHOLECALCIFEROL 1,000 UNIT TABLET PO SCH (10:30)
[2020-03-04] MEDS ORDERED: VANCOMYCIN PER PHARMACY MC PRN (10:30)
[2020-03-04] MEDS: CETIRIZINE 10 MG TABLET PO SCH (10:31)
[2020-03-04] MEDS: FOLIC ACID 1 MG TABLET PO SCH (10:31)
[2020-03-04] MEDS: THIAMINE 100MG TABLET PO SCH ×2 (10:31→21:24)
[2020-03-04] MEDS: SENNA/DOCUSATE TABLET PO SCH (10:31)
[2020-03-04] MEDS: MULTIVITAMINS/MINERALS TABLET PO SCH (10:31)
[2020-03-04] MEDS ORDERED: PHARMACOKINETIC MONITORING MC PRN (11:30)
[2020-03-04] MEDS: ACETAMINOPHEN 325 MG TABLET PO PRN ×3 (11:30→21:22)
[2020-03-04] MEDS: VANCOMYCIN 2,000 MG in SODIUM CHLORIDE 0.9% 500 ML IV SCH (11:30)
[2020-03-04 13:30] VITALS: BP 96/63
[2020-03-04] MEDS: HEPARIN 25,000 UNITS/250ML PMX 250 ML IV PRN (14:30)
[2020-03-04] MEDS ORDERED: MAGNESIUM SULFATE PMX 2GM/50ML 50 ML IV ONE (15:00)
[2020-03-04] MEDS: WARFARIN 5 MG TABLET PO-COUM SCH (18:24)
[2020-03-04 18:41] VITALS: BP 96/59
[2020-03-05 01:10] VITALS: BP 99/58
[2020-03-05 02:16] LABS: INTERNATIONAL NORMALIZED RATIO 1.39 (0.93-1.1); PROTHROMBIN TIME 14.7 Seconds (9.6-11.5)
[2020-03-05] MEDS: AMPICILLIN/SULBACTAM 3 GM in SODIUM CHLORIDE 0.9% 100 ML IV SCH ×2 (03:37→09:33)
[2020-03-05] MEDS: OMEPRAZOLE 20 MG CAPSULE.DR PO SCH (05:53)
[2020-03-05] MEDS: VANCOMYCIN 2,000 MG in SODIUM CHLORIDE 0.9% 500 ML IV SCH ×2 (05:53→23:51)
[2020-03-05 07:49] VITALS: BP 112/70
[2020-03-05] MEDS: LIDODERM 5% PATCH TD SCH (08:29)
[2020-03-05] MEDS: ACETAMINOPHEN 325 MG TABLET PO PRN (08:29)
[2020-03-05] MEDS: MULTIVITAMINS/MINERALS TABLET PO SCH (08:29)
[2020-03-05] MEDS: THIAMINE 100MG TABLET PO SCH ×2 (08:29→20:30)
[2020-03-05] MEDS: CETIRIZINE 10 MG TABLET PO SCH (08:29)
[2020-03-05] MEDS: CHOLECALCIFEROL 1,000 UNIT TABLET PO SCH (08:29)
[2020-03-05] MEDS: SENNA/DOCUSATE TABLET PO SCH (08:29)
[2020-03-05] MEDS: FOLIC ACID 1 MG TABLET PO SCH (08:29)
[2020-03-05 08:43] LABS: BASOPHILS % (AUTO) 1 % (0-1); EOSINOPHILS % (AUTO) 2 % (1-7); LYMPHOCYTES % (AUTO) 20 % (22-44); MEAN CORPUSCULAR HEMOGLOBIN 36.5 pg (27.5-34.5); MEAN CORPUSCULAR HGB CONC 34.4 g/dL (33.2-36.2); MEAN PLATELET VOLUME 9.2 fL (7.4-10.4); MONOCYTES % (AUTO) 10 % (2-9); NEUTROPHILS % (AUTO) 69 % (42-75); PLATELET COUNT 166 x10^3/uL (130-400); RED BLOOD COUNT 3.36 x10^6/uL (4.38-5.82); RED CELL DISTRIBUTION WIDTH 14.9 % (9.4-14.8)
[2020-03-05 08:46] LABS: ANION GAP 7 mmol/L (5-15); CALCIUM 8.5 mg/dL (8.5-10.1); CHLORIDE 104 mmol/L (98-107); CREATININE 1.19 mg/dL (0.7-1.3)
[2020-03-05 09:27] LABS: MD SCAN
[2020-03-05] MEDS ORDERED: MORPHINE SULFATE 4 MG/ML, 1ML IVPush PRN (10:00)
[2020-03-05] MEDS ORDERED: MAGNESIUM SULFATE PMX 2GM/50ML 50 ML IV ONE (13:30)
[2020-03-05 13:37] VITALS: BP 110/70
[2020-03-05] MEDS: CEFTRIAXONE PMX 2GM/50ML 50 ML IVPB SCH (16:29)
[2020-03-05] MEDS ORDERED: GADOTERATE 10 MMOL/20 ML VIAL ONE (16:44)
[2020-03-05] MEDS: WARFARIN 5 MG TABLET PO-COUM SCH (17:19)
[2020-03-05 18:43] VITALS: BP 111/73
[2020-03-06 00:32] VITALS: BP 106/68
[2020-03-06] MEDS: HEPARIN 25,000 UNITS/250ML PMX 250 ML IV PRN (01:09)
[2020-03-06] MEDS: OMEPRAZOLE 20 MG CAPSULE.DR PO SCH (05:10)
[2020-03-06 05:15] LABS: MEAN CORPUSCULAR HEMOGLOBIN 35.9 pg (27.5-34.5); PLATELET COUNT 184 x10^3/uL (130-400); RED BLOOD COUNT 3.37 x10^6/uL (4.38-5.82); RED CELL DISTRIBUTION WIDTH 14.7 % (9.4-14.8)
[2020-03-06 05:27] LABS: INTERNATIONAL NORMALIZED RATIO 1.58 (0.93-1.1); PROTHROMBIN TIME 16.7 Seconds (9.6-11.5)
[2020-03-06 05:29] LABS: ANION GAP 5 mmol/L (5-15); CALCIUM 8.4 mg/dL (8.5-10.1); CHLORIDE 103 mmol/L (98-107); CREATININE 1.08 mg/dL (0.7-1.3)
[2020-03-06 06:03] LABS: MD YES
[2020-03-06 06:05] LABS: BAND#(MANUAL) 0.05 x10^3/uL; BANDS%(MANUAL) 1 % (0-7); BASOS#(MANUAL) 0.05 x10^3/uL (0-0.1); BASOS% (MANUAL) 1 % (0-1); EOS#(MANUAL) 0.16 x10^3/uL (0.0-0.4); EOS% (MANUAL) 3 % (1-7); LYMPH#(MANUAL) 1.19 x10^3/uL (1-3.4); LYMPHS% (MANUAL) 22 % (22-44); METAMYELOCYTES# (MANUAL) 0.05 x10^3/uL (0-0); METAMYELOCYTES% (MANUAL) 1 % (0-1); MONOS#(MANUAL) 0.22 x10^3/uL (0.3-2.7); MONOS% (MANUAL) 4 % (2-9); MYELOCYTES# (MANUAL) 0.05 x10^3/uL (0-0); MYELOCYTES% (MANUAL) 1 % (0-0); SEG#(MANUAL) 3.62 x10^3/uL (1.8-6.8); SEGS% (MANUAL) 67 % (42-75)
[2020-03-06 06:06] LABS: <PLATELET ESTIMATE> ADEQUATE; <PLT MORPHOLOGY> NORMAL PLT MORPH
[2020-03-06 07:06] VITALS: BP 112/68
[2020-03-06] MEDS: CETIRIZINE 10 MG TABLET PO SCH (09:07)
[2020-03-06] MEDS: MULTIVITAMINS/MINERALS TABLET PO SCH (09:07)
[2020-03-06] MEDS: SENNA/DOCUSATE TABLET PO SCH (09:08)
[2020-03-06] MEDS: CHOLECALCIFEROL 1,000 UNIT TABLET PO SCH (09:08)
[2020-03-06] MEDS: FOLIC ACID 1 MG TABLET PO SCH (09:08)
[2020-03-06] MEDS: THIAMINE 100MG TABLET PO SCH ×2 (09:08→20:57)
[2020-03-06] MEDS: LIDODERM 5% PATCH TD SCH (09:09)
[2020-03-06 12:23] LABS: HCT (SEDRATE) 35.5 % (39.2-51.8)
[2020-03-06] MEDS: CEFTRIAXONE PMX 2GM/50ML 50 ML IVPB SCH (13:17)
[2020-03-06 13:28] VITALS: BP 117/75
[2020-03-06] MEDS ORDERED: DOXY-162 PO (13:29)
[2020-03-06] MEDS ORDERED: CEFD300C37 PO (13:29)
[2020-03-06] MEDS ORDERED: ENOX100S4 SQ (13:29)
[2020-03-06] MEDS: ENOXAPARIN 100 MG/ML SQ SCH (13:59)
[2020-03-06] MEDS: WARFARIN 5 MG TABLET PO-COUM SCH (17:50)
[2020-03-06] MEDS: VANCOMYCIN 2,000 MG in SODIUM CHLORIDE 0.9% 500 ML IV SCH (17:50)
[2020-03-06 20:00] VITALS: BP 123/79
[2020-03-07 01:43] VITALS: BP 119/75
[2020-03-07] MEDS: ENOXAPARIN 100 MG/ML SQ SCH (01:43)
[2020-03-07 05:09] LABS: INTERNATIONAL NORMALIZED RATIO 1.8 (0.93-1.1)
[2020-03-07] MEDS: OMEPRAZOLE 20 MG CAPSULE.DR PO SCH (05:49)
[2020-03-07 07:05] VITALS: BP 108/64
[2020-03-07] MEDS: SENNA/DOCUSATE TABLET PO SCH (09:00)
[2020-03-07] MEDS: CHOLECALCIFEROL 1,000 UNIT TABLET PO SCH (09:47)
[2020-03-07] MEDS: THIAMINE 100MG TABLET PO SCH (09:47)
[2020-03-07] MEDS: FOLIC ACID 1 MG TABLET PO SCH (09:47)
[2020-03-07] MEDS: MULTIVITAMINS/MINERALS TABLET PO SCH (09:47)
[2020-03-07] MEDS: CETIRIZINE 10 MG TABLET PO SCH (09:47)
[2020-03-07] MEDS: LIDODERM 5% PATCH TD SCH (09:48)
[2020-03-07 13:08] VITALS: BP 138/90
[2020-03-07] MEDS ORDERED: APIXABAN 5 MG TABLET ONE (13:57)
[2020-03-07] MEDS: CEFTRIAXONE PMX 2GM/50ML 50 ML IVPB SCH (13:59)
[2020-03-07] MEDS ORDERED: APIXABAN 5 MG TABLET PO SCH (14:00)
[2020-03-07] MEDS ORDERED: LINE600T12 PO (15:11)
[2020-03-07] MEDS ORDERED: APIX5TAB PO (15:11)
[2020-03-07] MEDS ORDERED: VANCOMYCIN 1,500 MG in SODIUM CHLORIDE 0.9% 250 ML IV SCH (18:00)
[2020-03-14] MEDS ORDERED: APIXABAN 5 MG TABLET PO SCH (09:00)
== END 2020-03-07 18:08 | disposition home health service (06) | DRG 299 ==
LOC: ED 18:48 → EDIP 20:54 → 5SO 23:30
PROVIDERS: ADMIT Family Medicine; ATTEND Internal Medicine
PROC: 0T9B70Z Drainage of Bladder with Drainage Device, Via Natural or Artificial Opening (ICD-10-PCS; principal; 2020-03-02)
DX: I82.402 Acute embolism and thrombosis of unspecified deep veins of left lower extremity (principal); G93.41 Metabolic encephalopathy; L03.115 Cellulitis of right lower limb; D68.69 Other thrombophilia; E87.1 Hypo-osmolality and hyponatremia; N30.00 Acute cystitis without hematuria; B96.20 Unspecified Escherichia coli [E. coli] as the cause of diseases classified elsewhere; D75.89 Other specified diseases of blood and blood-forming organs; E83.52 Hypercalcemia; I10 Essential (primary) hypertension; I48.91 Unspecified atrial fibrillation; G89.29 Other chronic pain; K21.9 Gastro-esophageal reflux disease without esophagitis; M21.961 Unspecified acquired deformity of right lower leg; Z79.01 Long term (current) use of anticoagulants; Z86.718 Personal history of other venous thrombosis and embolism; Z82.49 Family history of ischemic heart disease and other diseases of the circulatory system; Z88.2 Allergy status to sulfonamides
CPT/HCPCS: 36415; 70450; 71045; 80048; 80053; 80202; 81001; 82607; 83605; 83735; 84100; 85025; 85520; 85610; 85651; 85730; 86140; 87040; 87070; 87077; 87086; 87147; 87186; 87205; 93005; 93308; 93321; 93325; G0378; J0295; J0696; J1644; J1650; J1940; J3370; J3480; A9575; J2270; J3475; J7030; J7040